=== PATIENT | female | born 1995 | race Two or more races ===

== ENCOUNTER 2019-06-12 03:12 | Emergency (ER) | payer MEDICAID ==
[~2019-06-12] VITALS: Ht 157.5 cm; Wt 46.8 kg
[2019-06-12 03:23] VITALS: BP 111/81
== END 2019-06-12 04:42 | disposition left against medical advice (07) ==
LOC: EMS 03:12
DX: M79.631 Pain in right forearm (principal); Z53.21 Procedure and treatment not carried out due to patient leaving prior to being seen by health care provider